=== PATIENT | female | born 1980 | race Caucasian/White ===

== ENCOUNTER → 2017-04-12 | Outpatient (CLI) | payer OTHER ==
--- NOTE | 2017-04-12 11:22 | US ---
EXAMINATION TYPE: US carotid duplex BILAT DATE OF EXAM: 04/12/2017 COMPARISON: NONE CLINICAL HISTORY: I63.9 Cerebral infarction, unspecified. EXAM MEASUREMENTS: RIGHT: Peak Systolic Velocity (PSV) cm/sec ----- Right CCA: 89.5 ----- Right ICA: 69.2 ----- Right ECA: 70.3 ICA/CCA ratio: 0.8 RIGHT: End Diastole cm/sec ----- Right CCA: 16.9 ----- Right ICA: 16.9 ----- Right ECA: 13.6 LEFT: Peak Systolic Velocity (PSV) cm/sec ----- Left CCA: 94.0 ----- Left ICA: 66.0 ----- Left ECA: 75.6 ICA/CCA ratio: 0.7 LEFT: End Diastole cm/sec ----- Left CCA: 30.5 ----- Left ICA: 25.8 ----- Left ECA: 12.7 VERTEBRALS (direction of flow): Right Vertebral: Antegrade Left Vertebral: Antegrade Rhythm: Normal No significant stenosis seen, no elevated velocities, minimal plaque seen. Morbidly obese patient who is breathing very heavily. IMPRESSION: No hemodynamically significant stenosis within either carotid system.
== END | disposition home or self-care (01) ==
LOC: RADUSWWP 09:46
PROVIDERS: ATTEND Psychiatry & Neurology Neurology
DX: I63.9 Cerebral infarction, unspecified (principal)
CPT/HCPCS: 93880

== ENCOUNTER → 2017-04-18 | Outpatient (CLI) | payer OTHER ==
[2017-04-22 14:29] LABS: Cotinine 2.5 ng/mL (<2.0); Nicotine <2.0 ng/mL (<2.0)
== END | disposition home or self-care (01) ==
LOC: LABWHC1 12:34
PROVIDERS: ATTEND Internal Medicine Pulmonary Disease
DX: F17.200 Nicotine dependence, unspecified, uncomplicated (principal)
CPT/HCPCS: 36415; G0480; 80323

== ENCOUNTER → 2017-04-22 | Outpatient (CLI) | payer OTHER | END | disposition home or self-care (01) | LOC: RADMRIMAIN 04-12 09:30 | PROVIDERS: ATTEND Psychiatry & Neurology Neurology | DX: Z53.9 Procedure and treatment not carried out, unspecified reason (principal) ==

== ENCOUNTER → 2021-03-23 | Outpatient (CLI) | payer MEDICARE, OTHER ==
[2021-03-23 15:52] VITALS: BP 120/70; PULSE 100; TEMP 98; BMI 74.5
--- NOTE | 2021-03-23 16:51 | P.HPBAR ---
Bariatric H&P - History & Physicial H&P Date: 03/23/21 History & Physicial: Visit/CC: initial clinic visit Patient initial contact: Initial weight: Initial weight in pounds: Height: 5 ft 3 in Initial BMI: Last weight: Current weight: 190.962 kg Current weight in pounds: 421.00 Current BMI: 74.5 [place] body weight (based on NIH guidelines): 52.163 kg Excess body weight loss: The patient is a 40 year-old F who presents for Bariatric Assessment. 40-year-old female presents with her to discuss bariatric surgery. Patient states she has dealt with her weight problem for the last 7 years since the of her . Patient requires a wheelchair for ambulation. He has tried a variety of weight loss methods. Currently BMI is 74.5. Majority of patient's weight is in the abdomen. History of COPD, diabetes, hypertension, tachycardia. No history of DVT or dysphagia. No GERD symptoms. Patient denies tobacco use. Review of Systems The patient denies any acute changes in vision or hearing, no dysphagia or odynophagia, no chest pain or shortness of breath, no dysuria or hematuria, no headache, no runny nose, no rectal bleeding or melena, no unexplained weight loss Past Medical History Past Medical History: Asthma, Dementia, GERD/Reflux, Hypertension, Osteoarthritis (OA), Pneumonia, Sleep Apnea/CPAP/BIPAP, Thyroid Disorder Additional Past Medical History / Comment(s): CHRONIC BACK AND KNEE PAIN. HEADACHES AND MIGRAINES. History of Any Multi-Drug Resistant Organisms: None Reported Past Surgical History: Cholecystectomy Past Anesthesia/Blood Transfusion Reactions: No Reported Reaction Past Psychological History: Anxiety, Depression Smoking Status: Never smoker Past Alcohol Use History: None Reported Past Drug Use History: None Reported - Past Family History Mother Family Medical History: COPD, Coronary Artery Disease (CAD), Hypertension, Thyroid Disorder Father Family Medical History: Unable to Obtain Surgical - Exam Vital Signs Temp Pulse BP 98 F 100 120/70 03/23/21 15:46 03/23/21 15:46 03/23/21 15:46 Physical exam: General: Well-developed, well-nourished HEENT: Normocephalic, sclerae nonicteric Abdomen: Nontender, very large obese abdomen with some abdominal hypertension, large pannus Extremities: No edema Neuro: Alert and oriented Bariatric Assessment & Plan (1) Morbid obesity with BMI of 70 and over, adult Narrative/Plan: 40-year-old female with severe morbid obesity. BMI of over 70. Unfortunately patient carries her weight for the most part in her abdomen as well. Patient felt to be too high risk for surgery locally. Discussed both sleeve gastrectomy and gastric bypass options. Given the degree of weight loss patient requires gastric bypass may be a better option for her. We will refer the patient to tertiary care bariatric center at this point. Questions the patient and her spouse had were answered. Status: Acute Bariatric Checklist Checklist: Plan: Checklist: EGD: 1. Hiatal hernia: 2. H. Pylori: HgbA1c: Vitamin D: Smoking: Never smoker Primary care physician referral: DR. RANGEL Psychiatry clearance: Cardiology clearance: Sleep study: Diet journal: VTE risk score: VTE risk level: Rehab needs at discharge:
== END | disposition home or self-care (01) ==
LOC: BARWHC3 15:32
PROVIDERS: ATTEND Surgery
DX: E66.01 Morbid (severe) obesity due to excess calories (principal); Z68.45 Body mass index [BMI] 70 or greater, adult
CPT/HCPCS: 99211